=== PATIENT | male | born 1955 | race Caucasian/White ===

== ENCOUNTER 2018-09-26 17:16 | Emergency (ER) | payer BC ==
[~2018-09-26] VITALS: Ht 172.7 cm; Wt 99.0 kg
[2018-09-26] MEDS ORDERED: predniSONE 20 mg tablet PO ONE (18:35)
[2018-09-26] MEDS ORDERED: ipratropium/albuterol 3ml nebule NEB ONE (20:00)
[2018-09-26 20:15] LABS: D-DIMER 0.68 MG/L FEU (0-0.50)
[2018-09-26] MEDS ORDERED: PRED20TA PO (20:55)
[2018-09-26] MEDS ORDERED: ALBU8.5H8 IH (20:55)
[2018-09-26] MEDS ORDERED: AZIT-63 PO (20:55)
[2018-09-26 22:03] VITALS: BP 104/39
== END 2018-09-26 22:04 | disposition home or self-care (01) ==
LOC: ER 17:18
DX: J44.1 Chronic obstructive pulmonary disease with (acute) exacerbation (principal); F17.200 Nicotine dependence, unspecified, uncomplicated; Z79.2 Long term (current) use of antibiotics; Z79.899 Other long term (current) drug therapy
CPT/HCPCS: 36415; 71046; 85379; 93005; 94640; 94760; 99284; J7512